=== PATIENT | male | born 1930 | race Caucasian/White ===

== ENCOUNTER 2018-10-10 07:15 | Emergency (ER) | payer BC ==
[~2018-10-10] VITALS: Ht 170.2 cm; Wt 82.1 kg
[2018-10-10 07:23] VITALS: Ht 170.2 cm; Wt 82.1 kg
[2018-10-10 08:08] LABS: ALKALINE PHOSPHATASE 106 U/L (46-116); ALT/SGPT 30 U/L (16-63); AST/SGOT 16 U/L (15-37); BILIRUBIN TOTAL 0.45 mg/dL (0.20-1.00); CARBON DIOXIDE 28.4 mmol/L (21-32); CHLORIDE SERUM 96 mmol/L (98-107); CREATININE SERUM 1.3 mg/dL (0.7-1.3); GLUCOSE SERUM 136 mg/dL (74-106); POTASSIUM SERUM 3.3 mmol/L (3.5-5.1); SODIUM SERUM 134 mmol/L (136-145)
[2018-10-10 08:14] LABS: RED CELL DISTRIBUTION WIDTH 13.6 % (11.5-14.5)
[2018-10-10 08:19] LABS: ALBUMIN 2.4 g/dL (3.4-5.0); TOTAL PROTEIN, SERUM 6.1 g/dL (6.4-8.2)
[2018-10-10 08:23] LABS: BASOPHIL % 0 % (0-2)
[2018-10-10 09:53] LABS: PLATELET COUNT 508 x10^3mcL (130-400)
[2018-10-10 09:57] LABS: UA SPECIFIC GRAVITY 1.015 (1.005-1.035); microscopic required? YES; urine erythrocyte NEGATIVE (NEGATIVE)
[2018-10-10 19:25] VITALS: BP 118/47
== END 2018-10-10 19:25 | disposition short-term general hospital (02) ==
LOC: ED 07:15
PROVIDERS: Emergency Medicine
DX: T81.44XA Sepsis following a procedure, initial encounter (principal); N39.0 Urinary tract infection, site not specified; K56.609 Unspecified intestinal obstruction, unspecified as to partial versus complete obstruction; I10 Essential (primary) hypertension; E03.9 Hypothyroidism, unspecified; Z85.038 Personal history of other malignant neoplasm of large intestine
CPT/HCPCS: J0456; J0696; J2270; J3490; J7030; J7050; J7060; Q0092; Q9967

== ENCOUNTER 2018-10-21 19:12 | Emergency (ER) | payer BC ==
[~2018-10-21] VITALS: Ht 170.2 cm; Wt 74.4 kg
[2018-10-21 19:22] VITALS: Ht 170.2 cm; Wt 74.4 kg
[2018-10-21 20:39] LABS: PLATELET COUNT 539 x10^3mcL (130-400)
[2018-10-21 20:43] LABS: CALCIUM 8.8 mg/dL (8.5-10.1); CARBON DIOXIDE 29.3 mmol/L (21-32); CHLORIDE SERUM 96 mmol/L (98-107); CREATININE SERUM 0.9 mg/dL (0.7-1.3); GLUCOSE SERUM 120 mg/dL (74-106); SODIUM SERUM 133 mmol/L (136-145)
[2018-10-21 20:53] LABS: ALKALINE PHOSPHATASE 91 U/L (46-116); ALT/SGPT 52 U/L (16-63); AST/SGOT 55 U/L (15-37); BILIRUBIN TOTAL 0.19 mg/dL (0.20-1.00); C REACTIVE PROTEIN 0.5 mg/dL (<=0.9)
--- NOTE | 2018-10-21 20:55 | NUR ---
ABG NOT DONE. PER DR HERNÁNDEZ, PT DOES NOT NEED ABG, PT NOT IN ANY RESP DISTRESS.
[2018-10-21 20:58] LABS: FREE T4 1.66 ng/dL (0.76-1.46); FREE THYROXINE INDEX 4.8 ug/dL (1.4-4.5); T4(THYROXINE) 12.6 ug/dL (4.7-13.3)
[2018-10-21 21:10] LABS: T3 TOTAL 0.87 ng/mL
[2018-10-21 21:28] LABS: ERYTHROCYTE SED RATE 76 mm/hr (0-20)
[2018-10-21 21:42] LABS: UA SPECIFIC GRAVITY <=1.005 (1.005-1.035); microscopic required? YES; urine erythrocyte NEGATIVE (NEGATIVE)
[2018-10-21 23:35] VITALS: BP 141/66
== END 2018-10-21 23:35 | disposition home or self-care (01) ==
LOC: ED 19:12
PROVIDERS: Specialist
DX: R53.1 Weakness (principal); E86.0 Dehydration; E03.9 Hypothyroidism, unspecified; I10 Essential (primary) hypertension
CPT/HCPCS: 84439; J7030; Q0092